=== PATIENT | male | born 1950 | race Caucasian/White ===

== ENCOUNTER → 2019-06-29 | Outpatient (CLI) | payer MEDICARE, OTHER ==
--- NOTE | 2019-06-29 11:33 | MRI ---
EXAM DESCRIPTION: Shoulder,Left CLINICAL HISTORY: 69 years, Male, PAIN IN LEFT SHOULDER. Injury about two weeks ago, ran into door jam, hip left shoulder. COMPARISON: Shoulder radiograph from 06/26/2019 TECHNIQUE: MRI of the left shoulder was performed with multiplanar multi sequence imaging without intravenous contrast. FINDINGS: Rotator tendons: Mild supraspinatus tendinosis and mild bursal/articular surface supraspinatus tendon fraying (at the critical zone). No full-thickness rotator cuff tear or tendon retraction. The infraspinatus, subscapularis and teres minor tendons are intact. Rotator muscles: No rotator cuff muscle atrophy. There is mild edema within the rotator interval and within the anterior supraspinatus muscle belly. Glenoid labrum: Mild circumferential degenerative tearing of the glenoid labrum. Small para labral cyst along the posterior inferior labrum (approximately 3 mm) . Acromion: The acromion morphology is type one. Moderate acromioclavicular joint osteoarthrosis with mild capsular hypertrophy and small anteriorly projecting osteophytes. Bone and joints: Moderate glenohumeral joint osteoarthrosis with some subcortical cystic changes about the inferior glenoid, inferior glenohumeral joint osteophyte formation and areas of full-thickness cartilage loss along the anterior glenoid. Large subcortical cystic changes about the humeral head measures 1.3 cm.. No focal bone marrow contusion or fracture. Biceps tendon: Normal course and morphology of the biceps tendon long head within the bicipital groove. The biceps labral anchor appears intact. Soft tissues: No solid or cystic mass is seen. Mild subacromial/subdeltoid bursitis. IMPRESSION: 1. Mild rotator interval injury with grade 1 strain of the anterior supraspinatus muscle. 2. Background mild supraspinatus tendinosis and partial-thickness predominantly bursal surface fraying. No full-thickness rotator cuff tear or tendon retraction. 3. Moderate acromioclavicular joint osteoarthrosis with small inferiorly projecting osteophyte can be a cause for external impingement on the rotator cuff. Mild subacromial/subdeltoid bursitis. 4. Moderate right glenohumeral joint osteoarthrosis with subcortical cystic changes, marginal osteophyte formation and small areas of full-thickness cartilage loss. 5. Circumferential degenerative tearing of the glenoid labrum with small posterior inferior para labral cyst. Electronically signed by: Madan Brown DO 06/29/2019 11:31 AM CDT
== END ==
LOC: MRI 10:06
PROVIDERS: ATTEND Family Medicine
DX: S46.812A Strain of other muscles, fascia and tendons at shoulder and upper arm level, left arm, initial encounter (principal); M19.012 Primary osteoarthritis, left shoulder; M75.52 Bursitis of left shoulder; M75.32 Calcific tendinitis of left shoulder; M71.312 Other bursal cyst, left shoulder

== ENCOUNTER → 2020-09-11 | Outpatient (CLI) | payer MEDICARE, OTHER | LOC: GMAM 16:48 | PROVIDERS: ATTEND Family Medicine | DX: Z13.29 Encounter for screening for other suspected endocrine disorder (principal); Z12.5 Encounter for screening for malignant neoplasm of prostate; R94.31 Abnormal electrocardiogram [ECG] [EKG] | CPT/HCPCS: 84403; G0103 ==

== ENCOUNTER → 2020-09-30 | Outpatient (CLI) | payer MEDICARE, OTHER ==
--- NOTE | 2020-09-30 20:14 | US ---
US HEAD NECK SOFT TISSUE CLINICAL STATEMENT:70 years Male NONTOXIC SINGLE THYROID NODULE. COMPARISON: None TECHNIQUE: Transcutaneous scanning, grayscale and Doppler modes. FINDINGS: Size right thyroid lobe: 4.5 x 1.7 x 1.4 cm Size left thyroid lobe: 4.2 x 1.6 is 1.3 cm Size isthmus: 0.16 cm Estimated total number of nodules greater than or equal to 1 cm: None. No cysts, no fluid collection, no large calcifications. Nodule 1: Size: 0.5 x 0.4 x 0.3 cm Location: Left Mid Composition: solid or almost completely solid: 2 points Echogenicity: hypoechoic: 2 points Shape: wider than tall: 0 points Margins: smooth: 0 points Echogenic foci: none: 0 points ACR Total Points: 4; ACR TI-RADS risk category: TR4 - moderately suspicious nodule. No dominant solid mass, no distinct cyst, no fluid collection, no large calcifications in the surrounding soft tissues. IMPRESSION: 1. Nodule 1: ACR TI-RADS 2017 Category TR4. Recommend: No further follow-up.. Recommendations based upon [employer] recommendations and ACR TI-RADS 2017 guidelines. Please see below*. 2. Soft tissue around the thyroid gland is unremarkable. *ACR TI-RADS 2017 Recommendations for imaging follow-up of nodules (baseline study): TR1: No FNA or follow up TR2: No FNA or follow up TR3: FNA if >/= 2.5 cm, follow up if 1.5 - 2.4 cm in 1, 3, and 5 years TR4: FNA if >/= 1.5 cm, follow up if 1.0 - 1.4 cm in 1, 2, 3, and 5 years TR5: FNA if >/= 1.0 cm, follow up if 0.5 - 0.9 cm every year for 5 years ACR TI-RADS recommends that no more than two nodules with the highest ACR TI-RADS total point should be biopsied and no more than four nodules should be followed. These recommendations do not apply to patients with increased risk for thyroid cancer or patients with symptomatic thyroid disease. Electronically signed by: Joaquin Silva MD 09/30/2020 8:13 PM [employer]
== END ==
LOC: US 09:59
PROVIDERS: ATTEND Family Medicine
DX: E04.1 Nontoxic single thyroid nodule (principal)

== ENCOUNTER → 2020-10-08 | Outpatient (CLI) | payer MEDICARE, OTHER | LOC: GMAM 12:44 | PROVIDERS: ATTEND Family Medicine | DX: E55.9 Vitamin D deficiency, unspecified (principal); E04.1 Nontoxic single thyroid nodule ==